=== PATIENT | female | born 1970 | race Caucasian/White ===

== ENCOUNTER 2016-03-27 18:49 | Outpatient (RCR) | payer MEDICARE, MEDICAID ==
[~2016-03-27] VITALS: Ht 167.6 cm; Wt 61.2 kg
[~2016-03-27 18:49] MED LIST: ACDPT PO; ACTIVATOR PO; CASCARA PO; CPR500T PO; HYDR-3702 PO; POLY17PO2 PO; PRED20TA PO; SKELETAL STRENGTH PO; THYROID ACTIVATOR PO; ZOLP5TAB PO; [UNRECOGNIZED DRUG - OTHER] PO; [UNRECOGNIZED DRUG - OTHER] PO; [UNRECOGNIZED DRUG - OTHER] PO; [UNRECOGNIZED DRUG - OTHER] PO; [UNRECOGNIZED DRUG - OTHER] PO; [UNRECOGNIZED DRUG - OTHER] PO; [UNRECOGNIZED DRUG - OTHER] PO; [UNRECOGNIZED DRUG - OTHER] PO; [UNRECOGNIZED DRUG - OTHER] PO; [UNRECOGNIZED DRUG - REMARK] PO
[2016-03-27] MEDS ORDERED: NS 100 ML (IVPB) BAG IV ONE (19:00)
[2016-03-27] MEDS ORDERED: methylPREDNISolone 125 MG (Solu-MEDROL) VIAL IV SCH (19:00)
--- NOTE | 2016-03-27 19:18 | NUR ---
After not recieving a signed order from Dr. Muhammad, this nurse called Dr. Sweet and got a verbal order to continue 1000mg solumedrol via IV for 5 days that was started yesterday.
[2016-03-27] MEDS ORDERED: SODIUM CHLORIDE FLUSH 3 ML SYR IV PRN ×2 (19:45→22:10)
[2016-03-27] MEDS: SODIUM CHLORIDE FLUSH 10 ML SYR IV PRN ×2 (19:51→21:04)
--- NOTE | 2016-03-27 20:47 | NUR ---
PATIENT STATING IV BURNING AND HURTS REAL BAD, LOOKED AND IS NOT INFILTRATED. DID D/C IV DUE TO PAIN AND NEW IV STARTED IN HER LEFT FOREARM. IV FININSHED INFUSING IN SITE IN LEFT FOREARM.
[2016-03-27] MEDS ORDERED: SODIUM CHLORIDE FLUSH 10 ML SYR IV PRN (22:10)
[2016-03-28] MEDS ORDERED: METHYLPREDNISOLONE SOD SUCC IV SCH (19:00)
[2016-03-28] MEDS ORDERED: SODIUM CHLORIDE IV SCH (19:00)
[2016-08-28] MEDS ORDERED: NS FLUSH 3 ML PRN IV (15:30)
[2016-08-28] MEDS ORDERED: SODIUM CHLORIDE IV ONE (15:30)
[2016-08-28] MEDS ORDERED: IRON SUCROSE IV ONE (15:30)
[2016-09-25] MEDS ORDERED: SODIUM CHLORIDE IV ONE (09:40)
[2016-09-25] MEDS ORDERED: IRON SUCROSE IV ONE (09:40)
[2016-09-25] MEDS: NS FLUSH 10 ML PRN IV ×2 (10:00→11:00)
--- NOTE | 2016-09-25 10:18 | NUR ---
Inserted IV occurance 2 today. 22g left hand.
[2016-09-25 11:06] VITALS: BP 101/66
== END 2016-11-26 | disposition home or self-care (01) ==
LOC: EUOP 18:50
PROVIDERS: ATTEND Family Medicine
DX: G35 Multiple sclerosis (principal); R79.89 Other specified abnormal findings of blood chemistry
CPT/HCPCS: 36000; 96365; 99281

== ENCOUNTER 2016-08-01 11:25 | Outpatient (RCR) | payer MEDICARE, MEDICAID | END 2016-08-17 12:00 | disposition home or self-care (01) | LOC: PT 11:25 | PROVIDERS: ATTEND Psychiatry & Neurology Neurology | DX: G35 Multiple sclerosis (principal); M79.605 Pain in left leg; M79.604 Pain in right leg; M79.672 Pain in left foot; M79.671 Pain in right foot | CPT/HCPCS: 97001; 97140; G8978; G8979 ==

== ENCOUNTER → 2016-11-13 | Outpatient (CLI) | payer MEDICARE, MEDICAID ==
--- NOTE | 2016-11-14 18:10 | Diagnostic Imaging Report ---
INDICATION: Screening mammogram. COMPARISON: 05/26/2011. The current study was also evaluated with a Computer Aided Detection (CAD) system. FINDINGS: CC and MLO views of the breasts were obtained. The breast tissue is heterogeneously dense, which may lower the sensitivity of mammography. Right breast: Asymmetric density is identified along the retroareolar line on the MLO view, posteriorly. There is suggestion of corresponding density also seen along the retroareolar line on the exaggerated CC view. This, however, is more anterior than expected. No suspicious microcalcifications are seen. Left breast: There is no dominant mass, suspicious cluster of microcalcifications or other evidence to indicate malignancy. There has been no significant change from prior mammograms. IMPRESSION: 1. Right breast densities as described above. 2. Stable mammographic exam of the left breast. ACR BI-RADS Category 0: Incomplete. (Needs additional imaging evaluation). Result letter will be mailed to the patient. Follow-up: Additional mammographic views of the right breast with potential for ultrasound to follow if needed. NOTE: Keep in mind that about 10% of breast cancers will not be identified on mammography. Further evaluation of a palpable mass not seen on mammography should be based on clinical grounds. Dictated by: Dictated on workstation # [id number]
== END ==
LOC: RAD 09:49
PROVIDERS: ATTEND Family Medicine
DX: Z12.31 Encounter for screening mammogram for malignant neoplasm of breast (principal); R92.2 Inconclusive mammogram

== ENCOUNTER → 2016-12-01 | Outpatient (CLI) | payer MEDICARE, MEDICAID ==
--- NOTE | 2016-12-01 18:17 | Diagnostic Imaging Report ---
INDICATION: Recall from screening. COMPARISONS: 11/13/2016, 05/26/2011. FAMILY HISTORY: Negative. Multiple additional digital mammographic views of the right breast are performed. A concomitant right breast ultrasound is performed. The current study was also evaluated with a Computer Aided Detection (CAD) system. FINDINGS: The breast is predominantly dense which does limit sensitivity. The multiple additional mammographic views did not show a definite mass or architectural distortion. There is no suspicious calcification. Targeted ultrasound did not show any malignant mass or other significant abnormality. IMPRESSION: 1. Additional mammographic and sonographic evaluation are negative for malignancy. Followup mammography in one year is recommended. ACR BI-RADS Category 2: Benign findings. Result letter will be mailed to the patient. Note: At least 10% of breast cancer is not imaged by mammography. Dictated by: Dictated on workstation # [id number]
--- NOTE | 2016-12-01 19:27 | Diagnostic Imaging Report ---
INDICATION: Recall from screening mammogram. Multiple real-time grayscale images were obtained through the central portion of the breast, medial to lateral. The patient was in wheelchair and we scanned her in the upright position. No solid mass was identified. A benign cyst was noted at 11:00 o'clock, 4 cm from the nipple. IMPRESSION: 1. Simple cyst, right breast, at 11:00 o'clock, 4 cm from the nipple. No malignant findings. Dictated by: Dictated on workstation # [id number]
== END ==
LOC: RAD 14:00
PROVIDERS: ATTEND Family Medicine
DX: R92.2 Inconclusive mammogram (principal)
CPT/HCPCS: 76642; G0206